=== PATIENT | male | born 1955 ===

== ENCOUNTER 2023-12-04 11:18 | Outpatient (REF) | payer BC, SELFPAY ==
--- OUTSIDE RECORDS SUMMARY | 2023-12-04 11:22 | XMS_ITS | Continuity of Care Document ---
Author Name Unknown Organization [facility] Ambulatory Clinics Address [address] [place] [address] Encounter [facility] NBR [id number] Date(s): 08/15/22 - 08/15/22 [facility] Ambulatory Clinics [address] [place], [place] [address] Social History Social History Type Response Sex Male
--- OUTSIDE RECORDS SUMMARY | 2023-12-04 11:22 | XMS_ITS | Continuity of Care Document ---
Author Name Unknown Organization [facility] Ambulatory Clinics Address [address] [place] [address] Encounter [facility] NBR [id number] Date(s): 08/25/22 - 08/25/22 [facility] Ambulatory Clinics [address] [place] [address] Encounter Diagnosis Strain of muscle(s) and tendon(s) of the rotator cuff of left shoulder, sequela (Discharge Diagnosis) - 08/25/22 Discharge Disposition: Home or Self Care Attending Physician: Venancio Casillas MD Allergies, Adverse Reactions, Alerts Substance Reaction Severity Status sulfa drugs Unknown Active Functional Status 08/25/22 Other exposure to Infectious Disease Non e Medications allopurinol 100 mg oral tablet 100 mg = 1 tab, Oral, BID, # 60 tab, 0 Refill(s) Start Date: 08/25/22 Status: Ordered atorvastatin 10 mg oral tablet 10 mg = 1 tab, Oral, Daily, # 30 tab, 0 Refill(s) Start Date: 08/25/22 Status: Ordered bisoprolol 10 mg oral tablet 10 mg = 1 tab, Oral, Daily, # 30 tab, 0 Refill(s) Start Date: 08/25/22 Status: Ordered celecoxib 200 mg oral capsule 200 mg = 1 cap, Oral, BID, # 60 cap, 0 Refill(s) Start Date: 08/25/22 Status: Ordered lisinopril 20 mg oral tablet 20 mg = 1 tab, Oral, Daily, # 30 tab, 0 Refill(s) Start Date: 08/25/22 Status: Ordered Problem List Condition Confirmation Course Effective Dates Status H ealth Status Informant Gout Confirmed Active Hyperlipidemia Confirmed Active HTN (hypertension) Confirmed Active Strain of muscle(s) and tendon(s) of the rotator cuff of left shoulder, sequela Confirmed Active Vital Signs Most recent to oldest [Reference Range]: 1 Peripheral Pulse Rate [60-100 bpm] 66 bp m (08/25/22 1:29 PM) Blood Pressure [90-140/60-90 mmHg] 130/8 2mmHg (08/25/22 1:29 PM) Weight 90.72 kg (08/25/22 1:29 PM) Weight Measured (lbs) 200.003 lb (08/25/22 1:29 PM) Height 177.8 cm (08/25/22 1:29 PM) Height/Length Measured (inches) 70 inch (08/25/22 1:29 PM) BSA Measured 2.12 m2 (08/25/22 1:29 PM) Body Mass Index 28.7 kg/m2 (08/25/22 1:29 PM) Social History Social History Type Response Tobacco Never tobacco user T obacco Use:. Sex Male
[2023-12-04 15:49] LABS: ALT 53 U/L (16-63); AST 23 U/L (15-37); Albumin 3.8 g/dL (3.4-5.0); Alkaline Phosphatase 74 U/L (46-116); Anion Gap 9.4 mmol/L (3-11); BUN 17 mg/dL (7-18); Bilirubin, Total 0.6 mg/dL (0.2-1.0); CO2 26.6 mmol/L (21.0-32.0); CREATININE 0.8 mg/dL (0.70-1.30); Calcium 9.3 mg/dL (8.5-10.1); Chloride 101 mmol/L (98-107); Glucose 175 mg/dL (74-106); Potassium 4.2 mmol/L (3.5-5.1); Sodium 137 mmol/L (136-145); Total Protein 7.5 g/dL (6.4-8.2)
[2023-12-04 16:11] LABS: Hemoglobin A1C 6.3 % (<5.7)
== END 2023-12-04 11:19 | disposition home or self-care (01) ==
LOC: NCHCN 11:18
PROVIDERS: PCP Physician Assistant; Visit Provider Physician Assistant
DX: R73.03 Prediabetes (principal)
CPT/HCPCS: 80053; 83036